=== PATIENT | female | born 1950 | race American Indian/Alaskan Native ===

== ENCOUNTER 2019-02-08 13:21 | Emergency (ER) | payer MEDICARE, MEDICAID ==
[~2019-02-08] VITALS: Ht 190.5 cm; Wt 100.0 kg
[~2019-02-08 13:21] MED LIST: ALEN70TA52 PO; AMLO2.5T2 PO; GABA-534 PO; LISI-604 PO; MILN50TA PO; NITR0.4T51 SL; OMEP20TA5 PO; PRAM0.253 PO; PRAV10TA39 PO; PREG100C PO; ZOLP10TA PO
[2019-02-08 13:27] VITALS: BP 143/73
== END 2019-02-08 14:37 | disposition home or self-care (01) ==
LOC: ER 13:21
DX: M25.512 Pain in left shoulder (principal); M25.552 Pain in left hip; R55 Syncope and collapse; I10 Essential (primary) hypertension; Z88.0 Allergy status to penicillin; Z88.2 Allergy status to sulfonamides; Z88.5 Allergy status to narcotic agent; Z88.8 Allergy status to other drugs, medicaments and biological substances; Z79.899 Other long term (current) drug therapy
CPT/HCPCS: 73030; 73502; 99283